=== PATIENT | male | born 1985 | race Caucasian/White ===

== ENCOUNTER 2020-08-24 23:55 | Emergency (ER) | payer MEDICAID ==
[~2020-08-24] VITALS: Ht 182.9 cm; Wt 104.3 kg
[~2020-08-24 23:55] MED LIST: ALBUTEROL
[2020-08-25 00:09] VITALS: BP_SYST 122
[2020-08-25] MEDS ORDERED: ACET1TAB23 PO (00:41)
[2020-08-25] MEDS ORDERED: IBUP-1969 PO (00:42)
[2020-08-25] MEDS ORDERED: IBUPROFEN 600 MG TABLET PO ONE (00:45)
[2020-08-25] MEDS ORDERED: IBUPROFEN 600 MG TABLET ONE (00:49)
[2020-08-25 00:55] VITALS: BP_SYST 127
== END 2020-08-25 00:55 | disposition home or self-care (01) ==
LOC: SED 23:55
DX: S90.32XA Contusion of left foot, initial encounter (principal); J45.909 Unspecified asthma, uncomplicated; Z88.6 Allergy status to analgesic agent; W18.39XA Other fall on same level, initial encounter; Y93.89 Activity, other specified; Y92.89 Other specified places as the place of occurrence of the external cause; Y99.8 Other external cause status
CPT/HCPCS: 99283

== ENCOUNTER 2021-02-26 14:48 | Emergency (ER) | payer MEDICAID, SELFPAY ==
[~2021-02-26] VITALS: Ht 182.9 cm; Wt 99.8 kg
[~2021-02-26 14:48] MED LIST changes: +IBUP-1969 PO
--- NOTE | 2021-02-26 15:00 | NUR ---
Pt brought by self, A&Ox4, pt presents to ER with cough/congestion, O2 98 %, skin pink and warm, cap refill <3, VSS
[2021-02-26 15:46] VITALS: BP_SYST 177
--- NOTE | 2021-02-26 16:05 | NUR ---
Dr Pate evaluating patient at bedside
--- NOTE | 2021-02-26 20:23 | NUR ---
patient ok to d/c home given aci and then verbalized understanding of f/u care and social distancing.
[2021-02-26 20:26] VITALS: BP_SYST 115
--- NOTE | 2021-02-26 20:27 | NUR ---
Patient given written and verbal discharge instructions and verbalizes understanding. ER MD discussed with patient the results and treatment provided. Patient in stable condition. ID arm band removed. Pain Scale 0. Opportunity for questions provided and answered. Medication side effect fact sheet provided.
== END 2021-02-26 20:26 | disposition home or self-care (01) ==
LOC: SED 14:48
DX: U07.1 COVID-19 (principal); J45.909 Unspecified asthma, uncomplicated; Z79.899 Other long term (current) drug therapy
CPT/HCPCS: 36415; 71045; 99284

== ENCOUNTER 2021-05-15 23:53 | Emergency (ER) | payer OTHER, MEDICAID ==
[~2021-05-15] VITALS: Ht 170.2 cm; Wt 59.0 kg
[2021-05-16] VITALS: BP_SYST 108
[2021-05-16] MEDS ORDERED: HYDR-3917 PO (02:39)
[2021-05-16] MEDS ORDERED: IBUP-1969 PO (02:39)
[2021-05-16] MEDS ORDERED: CYCL10TA24 PO (02:39)
[2021-05-16] MEDS ORDERED: HYDROcodone/ACETAMIN 5-325 MG TAB (NORCO/ VICODIN) PO ONE (02:45)
[2021-05-16 03:54] VITALS: BP_SYST 126
== END 2021-05-16 03:54 | disposition home or self-care (01) ==
LOC: SED 23:53
DX: S39.012A Strain of muscle, fascia and tendon of lower back, initial encounter (principal); S80.01XA Contusion of right knee, initial encounter; M54.42 Lumbago with sciatica, left side; J45.909 Unspecified asthma, uncomplicated; Z79.899 Other long term (current) drug therapy; V49.49XA Driver injured in collision with other motor vehicles in traffic accident, initial encounter; Y93.89 Activity, other specified; Y92.89 Other specified places as the place of occurrence of the external cause; Y99.8 Other external cause status
CPT/HCPCS: 72100-TC; 99283

== ENCOUNTER 2021-05-25 15:30 | Emergency (ER) | payer MEDICAID, OTHER ==
[~2021-05-25] VITALS: Ht 182.9 cm; Wt 108.9 kg
[~2021-05-25 15:30] MED LIST changes: +CYCL10TA24 PO; +HYDR-3917 PO
[2021-05-25 15:48] VITALS: BP_SYST 145
--- NOTE | 2021-05-25 15:50 | NUR ---
PT CAME FROM HOME WITH CC OF CONTINUAL BACK PAIN. NEEDS ADDITIONAL WORK NOTE TO MAKE IT TO HIS APPT ON MAY 31. PT IS STABLE, NAD, VSS, MILD PAIN, TO BE FURTHER ASSESSED BY ED MD
--- NOTE | 2021-05-25 15:55 | NUR ---
ED MD AT BEDSIDE FOR EVALUATION
[2021-05-25 16:00] VITALS: BP_SYST 135
[2021-05-25] MEDS ORDERED: HYDROcodone/ACETAMIN 5-325 MG TAB (NORCO/ VICODIN) PO ONE (16:00)
[2021-05-25] MEDS ORDERED: IBUPROFEN 800 MG TABLET PO ONE (16:00)
[2021-05-25] MEDS ORDERED: predniSONE 20 MG TABLET PO ONE (16:00)
[2021-05-25] MEDS ORDERED: LIDOCAINE PATCH 5% 1 EA TP ONE (16:00)
--- NOTE | 2021-05-25 16:00 | NUR ---
Assessed patient at bedside. Pt maintains stable vital signs. Addendum: 05/25/21 at 1701 by [email or web address] Assessed patient at bedside. Vital signs stable. Pain medications provided as ordered.
[2021-05-25] MEDS ORDERED: IBUP-1969 PO (16:08)
[2021-05-25] MEDS ORDERED: LIDO30CR TP (16:08)
[2021-05-25] MEDS ORDERED: PRED20TA PO (16:08)
[2021-05-25] MEDS ORDERED: HYDR-3917 PO (16:08)
--- NOTE | 2021-05-25 16:30 | NUR ---
Patient given written and verbal discharge instructions and verbalizes understanding. ER MD discussed with patient the results and treatment provided. Patient in stable condition. ID arm band removed.
== END 2021-05-25 16:30 | disposition home or self-care (01) ==
LOC: SED 15:30
DX: G89.29 Other chronic pain (principal); M54.50 Low back pain, unspecified; J45.909 Unspecified asthma, uncomplicated; Z79.899 Other long term (current) drug therapy
CPT/HCPCS: 99284; J7512

== ENCOUNTER 2022-01-21 19:20 | Emergency (ER) | payer MEDICAID ==
[~2022-01-21] VITALS: Ht 170.2 cm; Wt 127.0 kg
[~2022-01-21 19:20] MED LIST changes: +LIDO30CR TP; +PRED20TA PO
[2022-01-21 19:27] VITALS: BP_SYST 131
--- NOTE | 2022-01-21 19:32 | NUR ---
PT HERE C/O COUGH, SORETHROAT AND BODYACHES X3 DAYS ALONG WITH CHEST CONGESTION. PT STATED THAT HE ALSO HAD CHILLS. DENIES FEVER. PMH;ASTHMA PT AAOX4, NO SOB NOTED AND NAD AT THIS TIME. PENDING MD AVILA
--- NOTE | 2022-01-21 20:27 | NUR ---
PT SWABBED, LABELED AND SENT TO LAB
[2022-01-21] MEDS ORDERED: IBUP-1969 PO (23:11)
[2022-01-21] MEDS ORDERED: ALBMDI INH (23:11)
[2022-01-21] MEDS ORDERED: INHA1EAC52 MC (23:11)
[2022-01-21] MEDS ORDERED: BENZ150C4 PO (23:11)
[2022-01-21] MEDS ORDERED: GUAI5SYR PO (23:11)
--- NOTE | 2022-01-21 23:11 | NUR ---
PT SEEN AND EXAMINE BY DR. MEJIA
[2022-01-21 23:25] VITALS: BP_SYST 133
--- NOTE | 2022-01-21 23:27 | NUR ---
DC PT HOME AAOX4, NO SOB NOTED AND NAD. DC INSTRUCTION,WORKNOTE AND PRESCRIPTION WERE GIVEN TO PT. ALSO INSTRUCTED TO F/U WITH HIS PCP. HE VERBALIZED UNDERSTANDING
== END 2022-01-21 23:18 | disposition home or self-care (01) ==
LOC: SED 19:20
DX: J20.8 Acute bronchitis due to other specified organisms (principal); R05.9 Cough, unspecified; R06.02 Shortness of breath; J45.909 Unspecified asthma, uncomplicated; Z79.899 Other long term (current) drug therapy; Z20.822 Contact with and (suspected) exposure to COVID-19
CPT/HCPCS: 36415; 99283

== ENCOUNTER 2022-01-23 22:57 | Emergency (ER) | payer MEDICAID ==
[~2022-01-23] VITALS: Ht 180.3 cm; Wt 127.0 kg
[~2022-01-23 22:57] MED LIST changes: +ALBMDI INH; +BENZ150C4 PO; +GUAI5SYR PO; +INHA1EAC52 MC
[2022-01-23 23:00] VITALS: BP_SYST 128
== END 2022-01-23 23:45 | disposition home or self-care (01) ==
LOC: SED 22:57
DX: J20.8 Acute bronchitis due to other specified organisms (principal); R05.9 Cough, unspecified; R09.81 Nasal congestion; J45.909 Unspecified asthma, uncomplicated; F17.200 Nicotine dependence, unspecified, uncomplicated; Z79.899 Other long term (current) drug therapy
CPT/HCPCS: 99281

== ENCOUNTER 2022-06-26 17:09 | Emergency (ER) | payer MEDICAID ==
[~2022-06-26] VITALS: Ht 180.3 cm; Wt 127.0 kg
[2022-06-26 17:10] VITALS: BP_SYST 134
== END 2022-06-26 18:50 | disposition home or self-care (01) ==
LOC: SED 17:09
DX: S93.402A Sprain of unspecified ligament of left ankle, initial encounter (principal); S90.32XA Contusion of left foot, initial encounter; J45.909 Unspecified asthma, uncomplicated; Z79.899 Other long term (current) drug therapy; W24.0XXA Contact with lifting devices, not elsewhere classified, initial encounter; Y93.89 Activity, other specified; Y92.89 Other specified places as the place of occurrence of the external cause; Y99.8 Other external cause status
CPT/HCPCS: 99284

== ENCOUNTER 2022-09-17 15:10 | Emergency (ER) | payer MEDICAID ==
[~2022-09-17] VITALS: Ht 177.8 cm; Wt 72.6 kg
[2022-09-17 15:32] VITALS: BP_SYST 139; PULSE 103; RESP 18; TEMP 98; O2SAT 95
[2022-09-17] MEDS ORDERED: KETOROLAC TROMETHAMINE 60 MG/2 ML VIAL IM ONE (16:30)
[2022-09-17] MEDS ORDERED: MORPHINE 4 MG INJ. 4 MG/ML VIAL IM ONE (16:30)
[2022-09-17] MEDS ORDERED: NAPR-690 PO (17:27)
[2022-09-17 17:30] VITALS: BP_SYST 114; PULSE 78; RESP 19; TEMP 98.3; O2SAT 95
== END 2022-09-17 17:30 | disposition home or self-care (01) ==
LOC: SED 15:10
DX: S33.5XXA Sprain of ligaments of lumbar spine, initial encounter (principal); J45.909 Unspecified asthma, uncomplicated; Z79.899 Other long term (current) drug therapy; X58.XXXA Exposure to other specified factors, initial encounter; Y93.89 Activity, other specified; Y92.89 Other specified places as the place of occurrence of the external cause; Y99.8 Other external cause status
CPT/HCPCS: 99283; 96372; J1885; J2270

== ENCOUNTER 2023-01-13 22:49 | Emergency (ER) | payer MEDICAID ==
[~2023-01-13] VITALS: Ht 180.3 cm; Wt 134.3 kg
[~2023-01-13 22:49] MED LIST changes: +NAPR-690 PO
[2023-01-13 22:57] VITALS: BP_SYST 128; PULSE 69; RESP 18; TEMP 96.8; O2SAT 98
[2023-01-13] MEDS ORDERED: NACL 0.9% 1,000 ML IV ONE (23:30)
[2023-01-13] MEDS ORDERED: ONDANSETRON HCL 4 MG/2 ML VIAL IVP ONE (23:30)
[2023-01-14 00:11] LABS: BASOPHILS % (AUTO) 0.6 % (0.0-2.0); EOSINOPHILS # (AUTO) 0.2 K/uL (0.0-0.4); EOSINOPHILS % (AUTO) 2.8 % (0.0-4.0); HEMATOCRIT 45.7 % (36-54); HEMOGLOBIN 15.2 g/dL (14.0-18.0); LYMPHOCYTES # (AUTO) 2.6 K/uL (1.0-5.5); MEAN CORPUSCULAR HEMOGLOBIN 29 pg (27-31); MEAN CORPUSCULAR HGB CONC 33 % (32-36); MEAN CORPUSCULAR VOLUME 86 fL (79.0-98.0); MONOCYTES # (AUTO) 0.5 K/uL (0.0-1.0); MONOCYTES % (AUTO) 6.5 % (1.7-9.3); NEUTROPHILS # (AUTO) 4.6 K/uL (1.8-7.7); NEUTROPHILS % (AUTO) 57.1 % (40.0-70.0); PLATELET COUNT (AUTO) 320 K/uL (130-430); RED CELL DISTRIBUTION WIDTH 13.5 % (9.0-15.0)
[2023-01-14 00:26] LABS: CREATININE 0.94 mg/dL (0.55-1.30); POTASSIUM 3.1 mmol/L (3.5-5.1)
[2023-01-14 00:30] LABS: ALBUMIN 3.3 g/dL (3.4-4.8); TOTAL BILIRUBIN 0.2 mg/dL (0.0-1.0); TOTAL PROTEIN, SERUM 7.3 g/dL (6.4-8.3)
[2023-01-14 01:08] LABS: BILIRUBIN,URINE NEGATIVE (NEGATIVE); BLOOD, URINE NEGATIVE (NEGATIVE); CLARITY/URINE CLEAR (CLEAR); COLOR,URINE YELLOW (YELLOW); GLUCOSE,URINE NEGATIVE (NEGATIVE); KETONES,URINE NEGATIVE (NEGATIVE); LEUKOCYTE ESTERASE ,URINE NEGATIVE (NEGATIVE); NITRITE, URINE NEGATIVE (NEGATIVE); PH,URINE 6.5 (5.0-8.0); PROTEIN URINE NEGATIVE (NEGATIVE); UROBILINOGEN,URINE 0.2 (0.2-1.0)
[2023-01-14] MEDS ORDERED: ONDA-8 TL (01:10)
[2023-01-14 01:22] VITALS: BP_SYST 128; PULSE 69; RESP 18; TEMP 96.8; O2SAT 98
== END 2023-01-14 01:27 | disposition home or self-care (01) ==
LOC: SED 22:49
DX: B34.9 Viral infection, unspecified (principal); R19.7 Diarrhea, unspecified; R10.9 Unspecified abdominal pain; J45.909 Unspecified asthma, uncomplicated; Z79.899 Other long term (current) drug therapy
CPT/HCPCS: 99283; 96361; 80053; 81001; 85025; 87040; 36415; 83605; 81003; 96374; J7030; J2405

== ENCOUNTER 2023-02-10 18:07 | Emergency (ER) | payer MEDICAID ==
[~2023-02-10] VITALS: Ht 182.9 cm; Wt 134.3 kg
[~2023-02-10 18:07] MED LIST changes: +ONDA-8 TL
[2023-02-10 19:37] VITALS: BP_SYST 137; PULSE 87; RESP 18; TEMP 98.3; O2SAT 97
[2023-02-10] MEDS ORDERED: ALBMDI INH (19:43)
== END 2023-02-10 20:17 | disposition home or self-care (01) ==
LOC: SED 18:07
DX: J06.9 Acute upper respiratory infection, unspecified (principal); R05.9 Cough, unspecified; R09.81 Nasal congestion; M79.10 Myalgia, unspecified site; J45.909 Unspecified asthma, uncomplicated; Z79.899 Other long term (current) drug therapy
CPT/HCPCS: 99283

== ENCOUNTER 2023-03-26 14:20 | Emergency (ER) | payer MEDICAID ==
[~2023-03-26] VITALS: Ht 180.3 cm; Wt 134.7 kg
[2023-03-26 14:20] VITALS: BP_SYST 125; PULSE 109; RESP 18; TEMP 97.3; O2SAT 95
[2023-03-26 15:14] LABS: BILIRUBIN,URINE NEGATIVE (NEGATIVE); BLOOD, URINE NEGATIVE (NEGATIVE); CLARITY/URINE CLOUDY (CLEAR); COLOR,URINE YELLOW (YELLOW); GLUCOSE,URINE NEGATIVE (NEGATIVE); KETONES,URINE NEGATIVE (NEGATIVE); LEUKOCYTE ESTERASE ,URINE NEGATIVE (NEGATIVE); NITRITE, URINE NEGATIVE (NEGATIVE); PROTEIN URINE NEGATIVE (NEGATIVE); UROBILINOGEN,URINE 0.2 (0.2-1.0)
[2023-03-26 15:40] LABS: CALCIUM 8.8 mg/dL (8.4-11.0); CREATININE 1.07 mg/dL (0.55-1.30); POTASSIUM 3.5 mmol/L (3.5-5.1)
[2023-03-26 15:47] LABS: BASOPHILS % (AUTO) 0.4 % (0.0-2.0); EOSINOPHILS # (AUTO) 0.2 K/uL (0.0-0.4); EOSINOPHILS % (AUTO) 1.8 % (0.0-4.0); HEMATOCRIT 44.5 % (36-54); LYMPHOCYTES # (AUTO) 2.2 K/uL (1.0-5.5); MEAN CORPUSCULAR HEMOGLOBIN 31 pg (27-31); MEAN CORPUSCULAR HGB CONC 36 % (32-36); MEAN CORPUSCULAR VOLUME 85 fL (79.0-98.0); MONOCYTES # (AUTO) 0.6 K/uL (0.0-1.0); MONOCYTES % (AUTO) 6.9 % (1.7-9.3); NEUTROPHILS # (AUTO) 6.2 K/uL (1.8-7.7); NEUTROPHILS % (AUTO) 66.9 % (40.0-70.0); PLATELET COUNT (AUTO) 331 K/uL (130-430); RED BLOOD CELL COUNT(AUTO) 5.22 MIL/uL (4.2-6.2); RED CELL DISTRIBUTION WIDTH 13.1 % (9.0-15.0); WHITE BLOOD COUNT (AUTO) 9.3 K/uL (4.8-10.8)
[2023-03-26] MEDS ORDERED: TRAM50TA2 PO (16:02)
[2023-03-26] MEDS ORDERED: IBUP-1969 PO (16:02)
[2023-03-26] MEDS ORDERED: METH-634 PO (16:02)
== END 2023-03-26 16:11 | disposition home or self-care (01) ==
LOC: SED 14:20
DX: S39.012A Strain of muscle, fascia and tendon of lower back, initial encounter (principal); J45.909 Unspecified asthma, uncomplicated; Z79.899 Other long term (current) drug therapy; X58.XXXA Exposure to other specified factors, initial encounter; Y93.89 Activity, other specified; Y92.89 Other specified places as the place of occurrence of the external cause; Y99.8 Other external cause status
CPT/HCPCS: 36415; 76376; 80048; 81001; 81003; 85025; 99284

== ENCOUNTER 2023-05-01 16:29 | Emergency (ER) | payer MEDICAID ==
[~2023-05-01] VITALS: Ht 182.9 cm; Wt 134.3 kg
[~2023-05-01 16:29] MED LIST changes: +METH-634 PO; +TRAM50TA2 PO
[2023-05-01 16:30] VITALS: BP_SYST 139; PULSE 97; RESP 18; TEMP 97.2; O2SAT 100
[2023-05-01 17:16] LABS: INFLUENZA TYPE A Negative (NEGATIVE); INFLUENZA TYPE B NEGATIVE (NEGATIVE)
[2023-05-01] MEDS ORDERED: AUG875 PO (17:45)
== END 2023-05-01 18:02 | disposition home or self-care (01) ==
LOC: SED 16:29
DX: J02.9 Acute pharyngitis, unspecified (principal); J45.909 Unspecified asthma, uncomplicated; Z79.899 Other long term (current) drug therapy; Z20.822 Contact with and (suspected) exposure to COVID-19
CPT/HCPCS: 36415; 86403; 87081; 99283

== ENCOUNTER 2023-09-15 11:14 | Emergency (ER) | payer MEDICAID ==
[~2023-09-15] VITALS: Ht 180.3 cm; Wt 132.4 kg
[~2023-09-15 11:14] MED LIST changes: +AUG875 PO; +BENZ150C10 PO; -BENZ150C4 PO
[2023-09-15 11:23] VITALS: BP_SYST 117; PULSE 85; RESP 22; TEMP 98.3; O2SAT 98
[2023-09-15] MEDS: KETOROLAC TROMETHAMINE 30 MG VIAL IM ONE (11:59)
[2023-09-15] MEDS: LIDOCAINE PATCH 5% 1 EA TP ONE (12:00)
[2023-09-15 12:24] LABS: BILIRUBIN,URINE NEGATIVE (NEGATIVE); CLARITY/URINE CLEAR (CLEAR); COLOR,URINE YELLOW (YELLOW); GLUCOSE,URINE NEGATIVE (NEGATIVE); KETONES,URINE NEGATIVE (NEGATIVE); LEUKOCYTE ESTERASE ,URINE NEGATIVE (NEGATIVE); NITRITE, URINE NEGATIVE (NEGATIVE); PROTEIN URINE NEGATIVE (NEGATIVE); UROBILINOGEN,URINE 0.2 (0.2-1.0)
[2023-09-15 12:25] LABS: BLOOD, URINE TRACE (NEGATIVE)
[2023-09-15 12:31] LABS: BACTERIA,URINE None Seen /HPF (None Seen); WBC,URINE 0-3 /HPF (0-3)
[2023-09-15] MEDS ORDERED: METH-634 PO (12:38)
[2023-09-15] MEDS ORDERED: NAPR-690 PO (12:38)
[2023-09-15 12:56] VITALS: BP_SYST 117; PULSE 85; RESP 22; TEMP 98.3; O2SAT 98
== END 2023-09-15 12:57 | disposition home or self-care (01) ==
LOC: SED 11:14
DX: M54.50 Low back pain, unspecified (principal); J45.909 Unspecified asthma, uncomplicated; Z79.899 Other long term (current) drug therapy; Z79.2 Long term (current) use of antibiotics
CPT/HCPCS: 99283; 81001; 96372; J1885; 81000; 81015

== ENCOUNTER 2023-12-18 19:50 | Emergency (ER) | payer MEDICAID ==
[~2023-12-18] VITALS: Ht 180.3 cm; Wt 133.4 kg
[2023-12-18 20:16] VITALS: BP_SYST 145; PULSE 77; RESP 20; TEMP 97.3; O2SAT 97
[2023-12-18] MEDS ORDERED: HYDR-3917 PO (20:22)
[2023-12-18] MEDS ORDERED: CLIN-142 PO (20:22)
[2023-12-18] MEDS ORDERED: IBUP-1971 PO (20:22)
== END 2023-12-18 20:35 | disposition home or self-care (01) ==
LOC: SED 19:50
DX: K04.7 Periapical abscess without sinus (principal); J45.909 Unspecified asthma, uncomplicated; Z79.899 Other long term (current) drug therapy; Z79.2 Long term (current) use of antibiotics
CPT/HCPCS: 99283